=== PATIENT | female | born 1965 | race Caucasian/White ===

== ENCOUNTER → 2018-06-27 | Outpatient (CLI) | payer MEDICARE, OTHER ==
[~2018-06-27] MED LIST: CYCL10 PO; DEPRESSION MED; HYDR1TAB94 PO; Norco 5-325 Ta1 EACH PO
== END | disposition home or self-care (01) ==
LOC: EDSTATUS 13:55 → LAB 20:20 → LAB SHORT 20:20
DX: R30.0 Dysuria (principal); R10.84 Generalized abdominal pain
CPT/HCPCS: 87077; 87086; 87186

== ENCOUNTER 2018-10-16 14:23 | Emergency (ER) | payer MEDICARE, OTHER ==
[~2018-10-16] VITALS: Ht 172.7 cm; Wt 140.6 kg
[2018-10-16] MEDS ORDERED: Bactrim Ds Tab1 EACH PO (15:54)
== END 2018-10-16 16:04 | disposition home or self-care (01) ==
LOC: ER 14:23
DX: L03.115 Cellulitis of right lower limb (principal); Z91.048 Other nonmedicinal substance allergy status; Z79.899 Other long term (current) drug therapy; F17.210 Nicotine dependence, cigarettes, uncomplicated; Z85.41 Personal history of malignant neoplasm of cervix uteri
CPT/HCPCS: 73590; 90471; 90714; 99283-25

== ENCOUNTER 2019-04-26 17:39 | Observation (INO) | payer MEDICAID ==
[~2019-04-26] VITALS: Ht 170.2 cm; Wt 109.1 kg
[~2019-04-26 17:39] MED LIST changes: +Bactrim Ds Tab1 EACH PO
[2019-04-26] MEDS ORDERED: Ventolin/Prove6.7 GM (18:04)
[2019-04-26] MEDS ORDERED: Citalopram HBr40 MG PO (18:04)
[2019-04-26] MEDS ORDERED: LOPE2C PO ×2 (18:04→20:57)
[2019-04-26] MEDS ORDERED: Depo-Testos200 MG/ML IM (18:04)
[2019-04-26 18:57] LABS: BASOPHILS ABSOLUTE AUTO 0.05 K/mm3 (0.00-0.23); BASOPHILS PERCENT AUTO 0 % (0-2); EOSINOPHILS ABSOLUTE AUTO 0.21 K/mm3 (0.00-0.68); EOSINOPHILS PERCENT AUTO 2 % (0-6); Hematocrit 53.4 % (33.0-51.0); Hemoglobin 17.3 g/dL (11.5-16.0); IMMATURE GRAN ABSOLUTE AUTO 0.04 K/mm3 (0.00-0.10); IMMATURE GRAN PERCENT AUTO 0 % (0-1); LYMPHOCYTES ABSOLUTE AUTO 2.72 K/mm3 (0.84-5.20); LYMPHOCYTES PERCENT AUTO 24 % (21-46); MONOCYTES PERCENT AUTO 10 % (4-13); Mean Corpuscular HGB 28.9 pg (26.0-34.0); Mean Corpuscular HGB Conc 32.4 g/dL (31.5-36.5); Mean Corpuscular Volume 89 fL (80-100); NEUTROPHILS ABSOLUTE AUTO 7.03 K/mm3 (1.96-9.15); NEUTROPHILS PERCENT AUTO 63 % (41-73); Platelet Count 266 K/mm3 (150-400); RDW Coefficient Variation 14.6 % (11.7-14.2); RDW Standard Deviation 47.5 fL (35.1-46.3); Red Blood Cell Count 5.98 M/mm3 (3.80-5.20); White Blood Cell Count 11.15 K/mm3 (4.00-11.30)
[2019-04-26 19:10] LABS: Alanine Aminotransfer (ALT/SGP 31 U/L (12-78); Albumin, Blood 3.4 g/dL (3.4-5.0); Albumin/Globulin Ratio 0.9 (0.8-1.8); Alk Phos 62 U/L (50-136); Anion Gap 8 mmol/L (6-16); Aspartate Aminotrans (AST/SGOT 23 U/L (12-37); Bilirubin, Total 0.5 mg/dL (0.1-1.0); Blood Urea Nitrogen 11 mg/dL (8-24); Bun/Creatinine Ratio 9.5 (12.0-20.0); CO2, Blood 26 mmol/L (21-32); Calcium, Blood 8.9 mg/dL (8.5-10.1); Chloride, Blood 106 mmol/L (98-108); Creatinine, Blood 1.16 mg/dL (0.40-1.00); Globulin, Blood 3.8 g/dL (2.2-4.0); Glomerular Filtration Rate 52 (60-); Glucose, Blood 103 mg/dL (70-99); Potassium, Blood 3.6 mmol/L (3.5-5.5); Sodium, Blood 140 mmol/L (136-145); Total Protein, Blood 7.2 g/dL (6.4-8.2); Troponin I <0.015 ng/mL (0.000-0.040)
--- NOTE | 2019-04-26 21:30 | NUR ---
PATIENT ARRIVED TO ROOM VIA GURNEY, GOT DIZZY UPON SITTING UP. HAD TO DANGLE FOR A FEW MINUTES BEFORE TRANSFERRING TO BED. ASSISTED WITH TRANSFER. AOX3 PLEASANT AND COOPERATIVE. STATES CHEST PAIN IS MID STERNUM, PRESSURE RATES AT A 2, DENIES RADIATING ELSEWHERE. STATES NAUSEATED, HAS BEEN FOR SEVERAL DAYS, UNABLE TO HOLD DOWN WATER OR FOOD. ASSESSMENT COMPLETED ALONG WITH ADMISSION PLEASE SEE CHART.
--- NOTE | 2019-04-26 22:26 | NUR ---
CALLED MD REGARDING NAUSEA AND PAIN MEDICATIONS. DR. CIFUENTES WILL PUT IN ORDERS FOR BOTH.
--- NOTE | 2019-04-27 06:03 | NUR ---
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 FROYLAN HAS HAD CONSTANT CHEST PRESSURE MID STERNUM ALL NIGHT, DENIES IT CHANGING OR MOVING FROM THE MID STERNUM AREA. MILD SOB NOTED ON EXERTION AND OFF AND ON NAUSEA. HAD TO GIVE ZOFRAN X2 AND SEVERAL CUPS OF PEPPERMENT TEA TO HELP FROM EMESIS OCCURING. CHEST PRESSURE DOES NOT CHANGE DURING POSITION CHANGE, OR WITH EXERTION. STATES REMAINS THE SAME AT ABOUT 2-4. TROPONIN LEVELS ALL NEGATIVE. TELEMETRY REPORTS SINUS RHYTHEM WITH PAC AROUND THE 60'S. ABLE TO GET UP INDEPENDENTLY TO THE BATHROOM BUT INSIST THAT HE CALL DUE TO DIZZINESS THAT OCCURS WITH POSITION CHANGE. CALL LIGHT REMAINED WITH IN REACH AND USED APPROPRIATLY. WILL REPORT TO DAY SHIFT RN.
--- NOTE | 2019-04-27 09:53 | NUR ---
ECHOCARDIOGRAM COMPLETED
[2019-04-27] MEDS ORDERED: Anti-Diarrheal2 MG PO (14:14)
[2019-04-27] MEDS ORDERED: Depo-Testos200 MG/ML IM (14:15)
[2019-04-27] MEDS ORDERED: PANT40 PO (14:16)
[2019-04-27] MEDS ORDERED: METO25 PO (14:16)
--- NOTE | 2019-04-27 15:39 | NUR ---
RIB PAIN CALL TO DR CARMONA TO INFORM THAT PATIENT IS EXPERIENCING A "SQUEEZING FEELING' AROUND HIS RIBS AND NAUSEA. PATIENT MEDICATED X 1 FOR NAUSEA AND GIVEN ONE DOSE OF NITRO. DR. CARMONA AWARE AND STATES PATIENT MAY DISCHARGE.
--- NOTE | 2019-04-27 15:46 | NUR ---
DISCHARGE DISCHARGE MEDICATIONS AND INSTRUCTIONS EXPLAINED TO PATIENT. PATIENT STATED UNDERSTANDING. IV REMOVED WITHOUT DIFFICULTY. BELONGINGS WITH PATIENT. PATIENT TRANSFERED TO PRIVATE VEHICLE VIA WHEELCHAIR.
== END 2019-04-27 16:55 | disposition home or self-care (01) ==
LOC: ER 17:39 → MEDS 17:40
PROVIDERS: Emergency Medicine; ADMIT Hospitalist
DX: R07.89 Other chest pain (principal); I10 Essential (primary) hypertension; D75.1 Secondary polycythemia; T38.7X5A Adverse effect of androgens and anabolic congeners, initial encounter; R73.9 Hyperglycemia, unspecified; F32.9 Major depressive disorder, single episode, unspecified; K21.9 Gastro-esophageal reflux disease without esophagitis; F17.210 Nicotine dependence, cigarettes, uncomplicated; E66.9 Obesity, unspecified; Z68.43 Body mass index [BMI] 50.0-59.9, adult; Z85.41 Personal history of malignant neoplasm of cervix uteri; Z91.048 Other nonmedicinal substance allergy status; Z90.13 Acquired absence of bilateral breasts and nipples; Z90.711 Acquired absence of uterus with remaining cervical stump; Z79.890 Hormone replacement therapy; Z79.899 Other long term (current) drug therapy
CPT/HCPCS: 36415; 71045; 80053; 83036; 84484; 85025; 93005; 93010; 93306; 99285-25; J1650; J2405

== ENCOUNTER → 2023-12-29 | Outpatient (CLI) | payer OTHER ==
[~2023-12-29] MED LIST changes: +ATORVASTATIN CA20 MG PO; +Anti-Diarrheal2 MG PO; +Citalopram HBr40 MG PO; +Depo-Testos200 MG/ML IM; +FUROSEMIDE20 MG PO; +LISINOPRIL 20 MG TAB; +LOPE2C PO; +METO25 PO; +PANT40 PO; +POTASSIUM CL ER 20 M; +TERB250 PO; +Ventolin/Prove6.7 GM
== END ==
LOC: LAB 07:53 → LAB SHORT 07:53
DX: D23.121 Other benign neoplasm of skin of left upper eyelid, including canthus (principal)
CPT/HCPCS: 88305